=== PATIENT | male | born 2000 | race Two or more races ===

== ENCOUNTER 2023-11-02 14:29 | Inpatient (IN) | payer OTHER ==
[~2023-11-02] VITALS: Ht 175.3 cm; Wt 68.5 kg
[2023-11-02] MEDS ORDERED: ZEGERID 40 MG1 EACH PO (14:44)
--- NOTE | 2023-11-02 14:46 | NUR ---
PACIENTE ALERTA Y ORIENTADO X3. SE ENCUENTRA ACOMPANADO DE FAMILAR. PACIENTE PRESENTA DOLOR ABDOMINAL AL MOMENTO. ADEMAS PRESENTA UN REFERIDO POR EL DR.MIGUEL MICK ARCHER PARA PROCEDIMIENTO. SE ESTIMAN SIGNOS VITALES Y SE UBICA A PACIENTE.
[2023-11-02] MEDS ORDERED: 0.9 % SODIUM CHLORIDE 1,000 ML IV ONE (18:00)
[2023-11-02] MEDS ORDERED: ONDANSETRON HCL 2 MG/ML VIAL IV ONE (18:00)
[2023-11-02] MEDS ORDERED: PIPERACILLIN/TAZOBACTAM SODIUM 3.375 GM VIAL IV ONE (18:00)
[2023-11-02] MEDS ORDERED: FAMOTIDINE/PF 20 MG/2 ML VIAL IV ONE (18:00)
[2023-11-02 18:18] LABS: HEMOGLOBIN 14.4 g/dL (13-16.00); MEAN CELL VOLUME 88.8 fL (80.0-100.00); MEAN CORPUSCULAR HEMOGLOBIN 29.7 pg (27.00-32.0); MEAN CORPUSCULAR HGB CONC 33.5 g/dl (32.0-36.0); PLATELET COUNT 241 K/uL (150-450); RED BLOOD COUNT 4.84 M/uL (4.00-6.00); RED CELL DISTRIBUTION WIDTH 13.2 % (11.5-14.5)
--- NOTE | 2023-11-02 18:23 | NUR ---
SE EDUCA PACIENTE SOBRE EL [place] MEDICO Y OMAR REFIERE ENTENDER. SE CANALIZA Y SE ADMINITRA MEDICAMENTOS CHUCK ORDEN MEDICA. SE KOBY MUESTRAS DE LABORATORIO Y SE ENVIAN. SE ENTREGA ENVASE DE U/A. PENDIENTE A PLACA Y SONOGRAMA
[2023-11-02 18:42] LABS: ALBUMIN 4.5 gm/dL (3.4-5.0); BILIRUBIN TOTAL 1.65 mg/dL (0.3-1.2); CALCIUM 9.4 mg/dL (8.5-10.1); CREATININE SERUM 0.99 mg/dL (0.70-1.30); GFR 92.87; GLOBULINA 3.9 G/DL (2.4-3.5); POTASSIUM 4.01 mEq/L (3.5-5.1); TOTAL PROTEIN 8.4 gm/dL (6.4-8.2)
[2023-11-02 18:44] LABS: ALBUMIN 4.6 gm/dL (3.4-5.0); BILIRUBIN TOTAL 1.64 mg/dL (0.3-1.2); BILIRUBIN,CONJUGATED 0.32 mg/dL (0.0-0.2); BILIRUBIN,UNCONJUGATED 1.32 mg/dL (0.0-0.6); TOTAL PROTEIN 8.2 gm/dL (6.4-8.2)
[2023-11-02 20:20] LABS: PH,URINE 7.5 (5.0-8.0); URINE APPEARANCE Clear; URINE BILIRRUBIN Negative (NEGATIVE); URINE BLOOD Negative; URINE COLOR Yellow; URINE GLUCOSE Negative (NEGATIVE); URINE LEUKOCYTE Negative; URINE NITRATE Negative; URINE PROTEIN Negative (NEGATIVE); URINE UROBILINOGEN 0.2 E.U./dl
[2023-11-02 20:31] LABS: URINE BACTERIA 2.5 uL (0.0-1933); URINE EPITHELIAL CELLS 1.3 uL (0.0-38.8); URINE RBC 1.8 uL (0.0-20.8); URINE WBC 0.1 uL (0.0-23.2)
[2023-11-02] MEDS ORDERED: 0.9 % SODIUM CHLORIDE 1,000 ML IV SCH (21:30)
[2023-11-02] MEDS ORDERED: MEPERIDINE HCL/PF 25 MG/ML VIAL IM PRN (21:30)
[2023-11-02] MEDS ORDERED: ONDANSETRON HCL 4 MG in 0.9 % SODIUM CHLORIDE 50 ML IV PRN (21:30)
[2023-11-02] MEDS ORDERED: ACETAMINOPHEN 500 MG GEL..CAP PO PRN (21:30)
[2023-11-03] MEDS ORDERED: PIPERACILLIN/TAZOBACTAM SODIUM 3.375 GM in DEXTROSE 5 % IN WATER 100 ML IV SCH
[2023-11-03 00:16] LABS: INR 1.05; PARTIAL THROMBOPLASTIN TIME 27.1 SECONDS (22.0-34.0)
[2023-11-03] MEDS ORDERED: FAMOTIDINE/PF 20 MG in 0.9 % SODIUM CHLORIDE 8 ML IV PUSH SCH (09:00)
[2023-11-04] MEDS ORDERED: KETOROLAC TROMETHAMINE 30 MG VIAL IV SCH (01:09)
[2023-11-04] MEDS ORDERED: SUGAMMADEX SODIUM 200 MG/2 ML VIAL IV ONE (01:29)
[2023-11-04] MEDS ORDERED: ONDANSETRON HCL 2 MG/ML VIAL ONE (03:31)
[2023-11-04] MEDS ORDERED: FAMOTIDINE/PF 20 MG/2 ML VIAL ONE (07:16)
[2023-11-04] MEDS ORDERED: DEXTROSE 5 % AND 0.9 % NACL 1,000 ML IV SCH (11:30)
[2023-11-05] MEDS ORDERED: FAMOTIDINE/PF 20 MG/2 ML VIAL ONE (08:13)
== END 2023-11-05 14:04 | disposition home or self-care (01) | DRG 419 ==
LOC: ER 14:29 → SEC-K 21:28 → MEDJ 21:28 → SURG 11-04 02:05
PROVIDERS: Emergency Medicine; Nurse Practitioner Family; ADMIT Internal Medicine; ATTEND Internal Medicine
PROC: 0FT44ZZ Resection of Gallbladder, Percutaneous Endoscopic Approach (ICD-10-PCS; principal; 2023-11-04)
DX: K80.10 Calculus of gallbladder with chronic cholecystitis without obstruction (principal); K52.9 Noninfective gastroenteritis and colitis, unspecified; J45.909 Unspecified asthma, uncomplicated; Z20.822 Contact with and (suspected) exposure to COVID-19